=== PATIENT | female | born 1940 | race Caucasian/White ===

== ENCOUNTER 2020-05-16 09:33 | Outpatient (CLI) | payer MEDICARE ==
[~2020-05-16 09:33] MED LIST: Iopamidol-370 76% 500 ML 1 ML ONE
--- NOTE | 2020-05-16 10:04 | CT ---
CT OF THE ABDOMEN AND PELVIS WITH IV CONTRAST INDICATION: 79-year-old female with weight loss and GI bleeding COMPARISON: None FINDINGS: ABDOMEN: Lung bases: Clear Liver: No focal lesion. Gallbladder: Surgically absent Pancreas: Normal. Adrenal glands: Normal. Spleen: Normal. Kidneys and ureters: There are very tiny hypodensities within the right kidney that are difficult emmett racterize due to their size but may reflect very tiny cysts. No suspicious focal renal lesion or hydronephrosis is demonstrated. Vasculature: There are mild vascular calcifications seen involving the visualized vasculature. Lymph nodes:No lymphadenopathy. Free fluid in abdomen:No free fluid is evident. PELVIS: Small and large bowel: There is a moderate amount of retained stool within colon. There is irregular, near circumferential wall thickening involving the ascending colon with mild pericolonic reticulation, most obvious along the right anterolateral wall on image 52 of series 2. This focal are a is suspicious for a circumferential mass of the ascending colon. Appendix:Normal Bladder: Normal. Rectal and perirectal soft tissues:Moderate amount retained stool within the rectum Reproductive structures: Fibroid uterus Free fluid in pelvis: No free fluid is evident. Lymphadenopathy pelvis: No lymphadenopathy is evident. Osseous structures: There is diffuse osteopenia. No acute fracture or subluxation demonstrated. Ther e is scattered degenerative and osteoarthritic changes. Soft tissues:There is a fat-containing umbilicus hernia. IMPRESSION: 1. Near circumferential irregular soft tissue mass involving the ascending colon is suspicious for co lonic malignancy. Recommend correlation with colonoscopy. 2. No overt evidence to suggest regional metastatic disease to the abdomen and pelvis. 3. Moderate amount retained stool within the colon and rectum. 4. Fibroid uterus.
== END 2020-05-16 09:34 | disposition home or self-care (01) ==
LOC: BICCT 09:33
PROVIDERS: ATTEND Internal Medicine Gastroenterology
DX: R63.4 Abnormal weight loss (principal); R68.81 Early satiety; K59.00 Constipation, unspecified; D25.9 Leiomyoma of uterus, unspecified
CPT/HCPCS: 74177; 82565; Q9967